=== PATIENT | male | born 1965 | race Caucasian/White ===

== ENCOUNTER 2020-03-13 00:20 | Emergency (ER) | payer OTHER ==
[~2020-03-13] VITALS: Ht 180.3 cm; Wt 108.9 kg
[~2020-03-13 00:20] MED LIST: ATENOLOL-? DOSE; BUPR100; CEPH500 PO; CRUTCH4 XX; Crutch1 EACH MISC; DILT120 PO; HYDCHL12.5 PO; HYDCHL25 PO; IBUP600 PO; LISI10 PO; LISI20 PO; LISI5 PO; LORA10ER PO; METO25ER PO; METO50 PO; NYSTRITC TOP; QUET100; RANI150; SAPHRIS; SIMV20 PO; SIMV5 PO; SULTRIDS PO; TRAM50 PO; TRAZ100; WARF5 PO; [UNRECOGNIZED DRUG - REMARK]
[2020-03-13 01:01] LABS: BASOPHILS ABSOLUTE AUTO 0.02 K/mm3 (0.00-0.23); BASOPHILS PERCENT AUTO 0 % (0-2); EOSINOPHILS ABSOLUTE AUTO 0.04 K/mm3 (0.00-0.68); EOSINOPHILS PERCENT AUTO 0 % (0-6); Hemoglobin 14.1 g/dL (13.5-17.5); IMMATURE GRAN ABSOLUTE AUTO 0.04 K/mm3 (0.00-0.10); IMMATURE GRAN PERCENT AUTO 0 % (0-1); LYMPHOCYTES PERCENT AUTO 15 % (21-46); MONOCYTES ABSOLUTE AUTO 0.73 K/mm3 (0.16-1.47); MONOCYTES PERCENT AUTO 7 % (4-13); Mean Corpuscular HGB 29.5 pg (26.0-34.0); Mean Corpuscular HGB Conc 32.8 g/dL (31.5-36.5); Mean Corpuscular Volume 90 fL (80-100); Mean Platelet Volume 10.8 fL (9.1-12.4); NEUTROPHILS PERCENT AUTO 77 % (41-73); Platelet Count 152 K/mm3 (150-400); RDW Coefficient Variation 13.3 % (11.7-14.2); RDW Standard Deviation 44.2 fL (35.1-46.3); Red Blood Cell Count 4.78 M/mm3 (4.30-5.90); White Blood Cell Count 10.23 K/mm3 (4.00-11.30)
[2020-03-13 01:15] LABS: International Normalized Ratio 1.06; Prothrombin Time Results 11.3 Sec (9.7-11.5)
[2020-03-13 01:18] LABS: Alanine Aminotransfer (ALT/SGP 26 U/L (12-78); Albumin, Blood 3.1 g/dL (3.4-5.0); Albumin/Globulin Ratio 0.6 (0.8-1.8); Alk Phos 73 U/L (50-136); Anion Gap 8 mmol/L (6-16); Aspartate Aminotrans (AST/SGOT 17 U/L (12-37); Bilirubin, Total 1.3 mg/dL (0.1-1.0); Blood Urea Nitrogen 22 mg/dL (8-24); Bun/Creatinine Ratio 25.2 (12.0-20.0); CO2, Blood 23 mmol/L (21-32); Chloride, Blood 103 mmol/L (98-108); Creatinine, Blood 0.87 mg/dL (0.60-1.20); Globulin, Blood 4.9 g/dL (2.2-4.0); Glomerular Filtration Rate >60 (60-); Glucose, Blood 119 mg/dL (70-99); Potassium, Blood 3.4 mmol/L (3.5-5.5); Sodium, Blood 134 mmol/L (136-145)
[2020-03-13] MEDS ORDERED: KEFLEX500 MG PO (03:02)
== END 2020-03-13 03:05 | disposition home or self-care (01) ==
LOC: ER 00:20
PROVIDERS: Emergency Medicine
DX: L03.115 Cellulitis of right lower limb (principal); Z79.01 Long term (current) use of anticoagulants; Z79.899 Other long term (current) drug therapy; I10 Essential (primary) hypertension; F31.9 Bipolar disorder, unspecified; F20.9 Schizophrenia, unspecified; G47.30 Sleep apnea, unspecified; Z87.891 Personal history of nicotine dependence
CPT/HCPCS: 36415; 80053; 83605; 85025; 85610; 93971; 96365; 99284-25; J0690

== ENCOUNTER 2021-03-20 23:36 | Inpatient (IN) | payer OTHER ==
[~2021-03-20] VITALS: Ht 180.3 cm; Wt 116.0 kg
[~2021-03-20 23:36] MED LIST changes: +KEFLEX500 MG PO
[2021-03-21 01:20] LABS: BASOPHILS ABSOLUTE AUTO 0.03 K/mm3 (0.00-0.23); BASOPHILS PERCENT AUTO 0 % (0-2); EOSINOPHILS ABSOLUTE AUTO 0.02 K/mm3 (0.00-0.68); EOSINOPHILS PERCENT AUTO 0 % (0-6); Hematocrit 44.8 % (37.0-53.0); Hemoglobin 14.4 g/dL (13.5-17.5); IMMATURE GRAN ABSOLUTE AUTO 0.06 K/mm3 (0.00-0.10); IMMATURE GRAN PERCENT AUTO 0 % (0-1); LYMPHOCYTES ABSOLUTE AUTO 0.98 K/mm3 (0.84-5.20); LYMPHOCYTES PERCENT AUTO 7 % (21-46); MONOCYTES ABSOLUTE AUTO 0.69 K/mm3 (0.16-1.47); MONOCYTES PERCENT AUTO 5 % (4-13); Mean Corpuscular HGB Conc 32.1 g/dL (31.5-36.5); Mean Corpuscular Volume 93 fL (80-100); Mean Platelet Volume 11.8 fL (9.1-12.4); NEUTROPHILS ABSOLUTE AUTO 12.59 K/mm3 (1.96-9.15); NEUTROPHILS PERCENT AUTO 88 % (41-73); Platelet Count 180 K/mm3 (150-400); RDW Coefficient Variation 14.7 % (11.7-14.2); RDW Standard Deviation 49.9 fL (35.1-46.3); White Blood Cell Count 14.37 K/mm3 (4.00-11.30)
[2021-03-21 02:00] LABS: Albumin/Globulin Ratio 0.8 (0.8-1.8); Bilirubin, Total 2.2 mg/dL (0.1-1.0); Bun/Creatinine Ratio 20.3 (12.0-20.0); Calcium, Blood 8.2 mg/dL (8.5-10.1); Creatinine, Blood 1.38 mg/dL (0.60-1.20); Globulin, Blood 3.6 g/dL (2.2-4.0); Potassium, Blood 4.4 mmol/L (3.5-5.5); Total Protein, Blood 6.6 g/dL (6.4-8.2); Troponin I 0.092 ng/mL (0.000-0.040)
[2021-03-21 02:53] LABS: Base Excess Venous 2.6 mmol/L; Bicarbonate Venous 24.9 mmol/L (24.0-30.0); pH Blood Venous 7.37 (7.34-7.37)
[2021-03-21 07:03] LABS: International Normalized Ratio 1.16; Prothrombin Time Results 12.4 Sec (9.7-11.5)
--- NOTE | 2021-03-21 07:48 | NUR ---
SHIFT SUMMARY REPORT RECIEVED FROM ANTONELLA RN, PATIENT TO ROOM @0545, SLID TO THE BED. PATIENT NOT RESPONDING TO VERBAL STIMULI UPON ARRIVAL, RESPONDED TO PAINFUL STIMULI. ONCE ALERT PATIENT ABLE TO ANSWER APPROPRIATELY AND PARTICIPATE IN CONVERSATIONG. PATIENT TO FLOOR ON BIPAP 02 SATS 97%. PATIENT COMPLAINING OF RLE PAIN, REDNESS, SWELLING AND PUSS NOTICED. REDNESS ON LLE WELL. SCABS COVERING ABDOMEN. PATIENT ABLE TO USE URINAL. VSS, NO ACUTE CHANGES. CALL LIGHT IN REACH.
[2021-03-21 09:14] LABS: Bicarbonate Venous 24.4 mmol/L (24.0-30.0); PCO2 Venous 30.9 mmHg (38-42); PO2 Venous 109 mmHg (38-42); pH Blood Venous 7.47 (7.34-7.37)
[2021-03-21 09:25] LABS: U Amphetamine Screen Not Detected; U Barbituate Screen Not Detected; U Benzodiazapine Screen Not Detected; U Buprenorphine Screen Not Detected; U Cannabinoids Screen Not Detected; U Cocaine Screen Not Detected; U Methadone Screen Not Detected; U Methamphetamine Screen Not Detected; U Opiates Screen Not Detected; U Oxycodone Screen Not Detected; U Phencyclidine Screen Not Detected; U Propoxyphene Screen Not Detected
[2021-03-21 15:07] LABS: Bun/Creatinine Ratio 16.1 (12.0-20.0); Calcium, Blood 7.5 mg/dL (8.5-10.1); Creatinine, Blood 1.86 mg/dL (0.60-1.20); Potassium, Blood 4.8 mmol/L (3.5-5.5)
--- NOTE | 2021-03-21 17:08 | NUR ---
Echocardiogram completed using 0.60ml of Definity contrast.
--- NOTE | 2021-03-21 17:47 | NUR ---
SHIFT SUMMARY THIS AM PT RESPONDING TO VERBAL STIMULI, THIS EVENING PT IS ALERT, ORIENTED TO PERSON, PLACE, EVENT AND TIME. PT UP WITH 1 PERSON ASSIST. PT ON BIPAP THIS AM 29/06 AT 45% FIO2, PT ON 4L O2 VIA NC. SOB, LABORED, TACHYPNIC. LS DIMISINTED T/O. PT DENIES PAIN, CHEST PAIN, NAUSEA AND DIZZINESS. CONT/INCONT. LAB THIS AFTERNOON, NOTIFIED DR SALCEDO, NEW ORDER ENTERED. BOLUS GIVNE. OTHER VSS. NO OTHER ACUTE CHANGES NOTED DURING SHIFT. WILL CONTINUE TO MONTIOR UNTIL REPORT GIVEN TO ONCOMING RN.
[2021-03-21 21:09] LABS: Base Excess Venous -0.9 mmol/L; PCO2 Venous 49.1 mmHg (38-42); PO2 Venous 27.2 mmHg (38-42); pH Blood Venous 7.32 (7.34-7.37)
[2021-03-21 21:52] LABS: BASOPHILS ABSOLUTE AUTO 0.02 K/mm3 (0.00-0.23); BASOPHILS PERCENT AUTO 0 % (0-2); EOSINOPHILS ABSOLUTE AUTO 0.02 K/mm3 (0.00-0.68); EOSINOPHILS PERCENT AUTO 0 % (0-6); Hematocrit 41.2 % (37.0-53.0); Hemoglobin 13.6 g/dL (13.5-17.5); IMMATURE GRAN ABSOLUTE AUTO 0.03 K/mm3 (0.00-0.10); IMMATURE GRAN PERCENT AUTO 0 % (0-1); LYMPHOCYTES ABSOLUTE AUTO 1.13 K/mm3 (0.84-5.20); LYMPHOCYTES PERCENT AUTO 14 % (21-46); MONOCYTES ABSOLUTE AUTO 0.71 K/mm3 (0.16-1.47); MONOCYTES PERCENT AUTO 9 % (4-13); Mean Corpuscular HGB 30.1 pg (26.0-34.0); Mean Corpuscular Volume 91 fL (80-100); Mean Platelet Volume 11.8 fL (9.1-12.4); NEUTROPHILS ABSOLUTE AUTO 6.31 K/mm3 (1.96-9.15); NEUTROPHILS PERCENT AUTO 77 % (41-73); Platelet Count 141 K/mm3 (150-400); RDW Coefficient Variation 14.7 % (11.7-14.2); RDW Standard Deviation 48.9 fL (35.1-46.3); Red Blood Cell Count 4.52 M/mm3 (4.30-5.90); White Blood Cell Count 8.22 K/mm3 (4.00-11.30)
[2021-03-21 22:13] LABS: Albumin, Blood 2.4 g/dL (3.4-5.0); Albumin/Globulin Ratio 0.7 (0.8-1.8); Bilirubin, Total 1.5 mg/dL (0.1-1.0); Bun/Creatinine Ratio 16.1 (12.0-20.0); Calcium, Blood 7.3 mg/dL (8.5-10.1); Creatinine, Blood 2.36 mg/dL (0.60-1.20); Globulin, Blood 3.4 g/dL (2.2-4.0); Potassium, Blood 4.8 mmol/L (3.5-5.5); Total Protein, Blood 5.8 g/dL (6.4-8.2); Troponin I 0.132 ng/mL (0.000-0.040)
[2021-03-21 22:22] LABS: PCO2 Arterial 39.1 mmHg (35-45); PO2 Arterial 142 mmHg (80-100); pH Blood Arterial 7.37 (7.35-7.45)
--- NOTE | 2021-03-21 22:55 | NUR ---
ASSUMPTION OF CARE RECEIVED BEDSIDE REPORT AT 0 FROM BHUPENDRA HOWARD IN PCU. INITIATED LEVOPHED CHARTED. RT TO ROOM ADJUSTING BIPAP AND DRAWING ABG. LAB TO ROOM DRAWING BLOOD FOR STAT LABS. PATIENT AWOKE TO COMMANDS AND WAS ALERT AND ORIENTED. WITHOUT STIMULATION PATIENT QUICKLY BEGAN SLEEPING AND WAS HARD TO AROUSE REQUIRING STERNAL RUB OR SHOUTING. ONCE VITALS STABILIZED AND LABS DRAWN, 2RN AND RT ASSIST TO CT FOR HEAD CT ORDERED. PATIENT ARRIVED TO ICU AT 0. CELESTE HOWARD PLACING ULTRASOUND IV'S TO LEFT EXTREMITY. PATIENT TOLERATING WELL. DR. JENKINS TO ROOM AT 2245, REVIEWED LABS AND WROTE NEW ORDERS. WILL REVIEW AND TREAT PRESCRIBED.
--- NOTE | 2021-03-21 23:34 | NUR ---
1929-DURING REPORT PATIENT SLEEPING. 1944-CALLED TO ROOM BY RT DUE TO PATIENT HAVING APNEIC BREATHING WHILE ON BIPAP AND HARD TO WAKE. CALLED FOR TELE ORDERS AND TO CHANGE PT STATUS BACK TO PCU SINCE PATIENT WAS TO BE TRANSFERRED TO MEDICAL FLOOR. ONCE ON TELEMETRY PATIENT NOTED TO BE IN A.FIB 130s-140s. UNABLE TO GIVE PO METOPROLOL DUE TO PATIENT APNEIC BREATHING AND STERNAL RUB TO GET PATIENT RESPONSE. MADE AWARE. 2008- TO PATIENT ROOM. VERBAL ORDERS FOR IV LOPRESSOR AND ABG. UNABLE TO GIVE RUBIO LOPRESSORE DUE TO PT BLOOD PRESSURE OF 84/58 BP WAS ORIGINALLY 119/65 @1944. ORDERS FOR 1L NS BOLUS, LABS AND TRANFER TO ICU, ICU 11 BED BEING CLEANED. TO THE ROOM, VERBAL ORDERS FOR WHIPPLE, HEAD CT WITHOUT CONTRAST AND LEVOPHED. UNABLE TO GET SECOND PERIPHERAL IV PLACED. BEDSIDE REPORT GIVEN TO TRISTAN HOWARD. NOTIFIED FAMILY. APPROX 2129-PT TO CT THEN ICU 11.
--- NOTE | 2021-03-22 00:44 | NUR ---
UPDATE RECTAL TUBE PLACED AND LACTULOSE ENEMA GIVEN CHARTED. UNCLAMPED RECTAL TUBE AFTER 30 MINUTES WITH NO STOOL NOTED. WHIPPLE CATHETER PLACED, PATIENT AWOKE QUICKLY, SHOUTED DURING PROCEDURE. AFTER COMPLETION PATIENT WAS AWAKE AND TALKING. BIPAP REMOVED, SATS 96% ON RA. ICE WATER PROVIDED, PATIENT TOLERATED PO INTAKE. PATIENT STATED HE DID NOT REMEMBER THE LAST FEW HOURS OR REMEMBER MOVING TO ICU. EDUCATED PATIENT ON CURRENT SITUATION AND MEDICAL CHANGES HE EXPERIENCED THAT CAUSED HIM TO COME TO ICU. PATIENT VERBALIZED UNDERSTANDING. WATCHING TV, BP IMPROVING. WILL MONITOR.
[2021-03-22 00:57] LABS: Source, Urine Catheter
[2021-03-22 00:59] LABS: Appearance, Urine Hazy (Clear); Bilirubin, Urine Neg (Neg); Blood, Urine 4+ (Neg); Color, Urine Amber (P-Yellow); Glucose Qualitative, Urine 1+ (Neg); Ketones, Urine Neg (Neg); Leukocyte Esterase, Urine 1+ (Neg); Nitrite, Urine Neg (Neg); Protein, Urine 4+ (Neg); Specific Gravity, Urine 1.025 (1.003-1.022); Urobilinogen, Urine 1+ (Normal)
[2021-03-22 01:05] LABS: Amorphous Mod (0-Heavy); Bacteria Mod /hpf; Hyaline Casts 0-2 /lpf (0-2); Squamous Epithelial Cells Few /hpf (Few)
--- NOTE | 2021-03-22 01:09 | NUR ---
RECTAL TUBE PATIENT STATING CONTINUOUSLY "MY BUTT HURTS" REMOVED RECTAL TUBE, SPOKE TO DR. GONZALEZ AND CHANGED LACTULOSE ORDERS FROM RECTALLY TO PO. NO BM AT THIS POINT.
--- NOTE | 2021-03-22 04:37 | NUR ---
UPDATE PATIENT FREQUENTLY CALLS OUT USING "KNOCK, KNOCK" OR "HEY NURSE", FORGETS TO USE CALL LIGHT. EACH TIME RN ENTERS ROOM PATIENT EXPRESSES CONCERN OVER HIS ILLNESS, STATING HE IS WORRIED ABOUT HIS HEART, KIDNEYS AND LIVER. PATIENT MAKES COMMENTS THAT HE IS GOING TO CHANGE AND START TAKING HIS MEDICATIONS LIKE HE IS SUPPOSED TO AND ASKED TO USE THE CPAP WHILE HE SLEPT. BIPAP WAS PLACED, PATIENT TOLERATED WELL, RESTING COMFORTABLY. SBP BELOW 90 BUT MAPS REMAINS ABOVE 65. PER DR. JENKINS LEVOPHED IS TO BE UTILIZED FOR MAP AND PATIENT'S SBP WAS OKAY LONG THE MAP REMAINS ABOVE 65. LEVOPHED CURRENTLY AT 1MCG. WILL CONTINUE TO MONITOR, CALL LIGHT IN REACH.
--- NOTE | 2021-03-22 05:56 | NUR ---
SHIFT SUMMARY PATIENT TRANSFERRED FROM PCU TO ICU FOR LOW BLOOD PRESSURE AND NEURO STATUS CHANGES. HEAD CT PERFORMED, LEVOPHED AND BIPAP INITIATED. PATIENT AWOKE PREVIOUSLY CHARTED AFTER LACTULOSE ENEMA WAS GIVEN. NO STOOL AT THIS TIME. A/O, FORGETFUL. TOLERATES INTERVENTIONS AND BIPAP WELL. TOLERATED BREAK ON 3L 02 VIA NC WITH SATS ABOVE 95%. REQUESTED TO GO BACK ON BIPAP WHEN ASLEEP. LEVOHPED INFUSED PERIPHERALLY AT A RATE OF 5MCG, TITRATED DOWN NOW LEVOPHED IS ON STANDBY WITH MAPS REMAINING ABOVE 65. WHIPPLE WAS PLACED, DARK URINE NOTED. RECTAL TUBE PLACED FOR LACTULOSE ENEMA, REMOVED FOR PATIENT'S DISCOMFORTS AND LACTULOSE CHANGED TO PO. WILL CONTINUE TO MONITOR AND REPORT TO ONCOMING RN.
[2021-03-22 07:38] LABS: Albumin, Blood 2.4 g/dL (3.4-5.0); Albumin/Globulin Ratio 0.7 (0.8-1.8); Bilirubin, Total 1.7 mg/dL (0.1-1.0); Bun/Creatinine Ratio 16.4 (12.0-20.0); Calcium, Blood 7.4 mg/dL (8.5-10.1); Creatinine, Blood 2.68 mg/dL (0.60-1.20); Globulin, Blood 3.5 g/dL (2.2-4.0); Potassium, Blood 4.4 mmol/L (3.5-5.5); Total Protein, Blood 5.9 g/dL (6.4-8.2)
[2021-03-22 07:39] LABS: International Normalized Ratio 1.17; Prothrombin Time Results 12.5 Sec (9.7-11.5)
--- NOTE | 2021-03-22 08:30 | NUR ---
ASSUMED CARE BEDSIDE REPORT RECIEVED. PT IS LAYING IN BED AWAKE, ALERT, AND ORIENTED. PT ANSWERS SOME QUESTIONS APPROPRIATELY. PT WITH SCATTERED NONSENSICAL SPEECH AT TIMES. HR 120-130'S, BP LABILE. PT ON 2L O2 NC. RIGHT LOWER EXTREMITY SWELLING/REDDNESS NOTED. MULTIPLE SCABS TO ABDOMEN NOTED. WHIPPLE IN PLACE WITH MANUEL URINE OUTPUT NOTED. WILL CONTINUE TO MONITOR.
[2021-03-22 12:12] LABS: Calcium, Blood 7.6 mg/dL (8.5-10.1); Creatinine, Blood 2.65 mg/dL (0.60-1.20); Potassium, Blood 4.3 mmol/L (3.5-5.5)
[2021-03-22 13:39] LABS: Thyroid Stimulating Hormone 3.52 uIU/mL (0.360-4.800)
--- NOTE | 2021-03-22 14:40 | NUR ---
ESMOLOL / HR PT WITH SUSTAINED HR 120-130'S AFIB. ORDERS RECIEVED TO START ESMOLOL GTT. ESMOLOL GTT STARTED WITH LOADING DOSE AND TITRATED UP TO 200 MCG/KG/MIN. HR DOWN TO 100'S. BP STABLE INITIALLY, THEN PT BECAME HYPOTENSIVE WITH SBP 60'S. ESMOLOL GTT PLACED ON STANDBY AT THIS TIME.
--- NOTE | 2021-03-22 18:05 | NUR ---
SHIFT SUMMARY NO ACUTE CHANGES THIS SHIFT. PT HAS REMAINED AWAKE FOR MOST OF THE DAY. PT WITH PERIODS OF SLEEPING AT TIMES, BUT AWAKENS EASILY. PT IS ALERT AND ORIENTED, BUT SPEECH REMAINS NONSENSICAL AT TIMES. PT DENIES ANY PAIN OR SOB. PT ON 2L O2 NC. PT BP HAS REMAINED LABILE THROUGHOUT THE SHIFT AND HR 110-130'S AFIB. PT CURRENTLY ON AMIODARONE GTT AT 1 MG/MIN. DR YA AWARE OF HR AND LABILE BP. WHIPPLE IN PLACE WITH SMALL AMOUNT OF DARK MANUEL OUTPUT THIS SHIFT. PT UP TO BSC FOR MULTIPLE BM'S THIS SHIFT. VISIT FROM PASTORAL [facility]ARE THIS AFTERNOON PER PT REQUEST. WILL CONTINUE TO MONITOR AND REPORT OFF TO ONCOMING RN.
--- NOTE | 2021-03-22 18:06 | NUR ---
Provided spiritual family life counselor and prayer to Stanley to good effect.
--- NOTE | 2021-03-23 05:59 | NUR ---
SHIFT SUMMARY PT AWAKE MOST OF NIGHT. ALERT AND ORIENTED, ABLE TO MAKE NEEDS KNOWN. COOPERATIVE WITH PLAN OF CARE. REASONING AND THOUGHT PROCESS A LITTLE OFF. SATS >90% ON 3LNC. TELE/EKG SHOWS AFIB RVR - AMIO GTT RUNNING AT HALF RATE NOW, BUT ALSO CALLED MD FOR AMIO BOLUS SINCE THERE HAD BEEN NO CHANGES TO HR WITH AMIO GTT ALONE. WHIPPLE IN PLACE - DRAINING TO GRAVITY, JESSICA CARE DONE. ABD/BLE RASH/CELLULITIS. FREQUENT BOWEL MOVEMENTS AFTER LACTULOSE GIVEN. VSS. NO C/O PAIN. CALL LIGHT WITHIN REACH, BED IN LOWEST POSITION. WILL CONTINUE TO MONITOR.
[2021-03-23 06:45] LABS: International Normalized Ratio 1.37; Prothrombin Time Results 14.5 Sec (9.7-11.5)
[2021-03-23 10:26] LABS: Albumin, Blood 2.7 g/dL (3.4-5.0); Albumin/Globulin Ratio 0.7 (0.8-1.8); Bilirubin, Total 2.3 mg/dL (0.1-1.0); Bun/Creatinine Ratio 17.5 (12.0-20.0); Creatinine, Blood 3.09 mg/dL (0.60-1.20); Potassium, Blood 4.7 mmol/L (3.5-5.5); Total Protein, Blood 6.7 g/dL (6.4-8.2)
--- NOTE | 2021-03-23 11:12 | NUR ---
pt was OOB to chair for breakfast, dyspneic with activity, also anxious after learning that he has heart failure. Dr. Baltazar here to talk with patient. Pt states that he is very motivated to follow recommendations for his health. States difficulty breathing with activity. Requiring oxygen at 2 l/min to maintain spo2 greater than 90%. Tolerated activity fairly well, getting up to bedside commode and then to chair with stanby assistance and using the walker for support. One liquid brownish yellow bowel movement this morning. Sat up in chair for most of morning, then requested back to bed around 1030. Almost immediately fell asleep. At this time, wearing cpap and sleeping . Fio2 is 35% on cpap. Noted CMP results, call to Dr. Baltazar regarding the renal function as well as significant jump in liver enzymes. Asked if amiodarone induced liver toxicity is a concern, and the doctor said no, that it was probably shock liver, and to keep the amiodarone gtt going. Advised him that I have about 6 hours left on the amiodarone gtt.
--- NOTE | 2021-03-23 12:16 | NUR ---
lactated ringer's infusion stopped at this time, per Dr. Benson's orders.
--- NOTE | 2021-03-23 13:36 | NUR ---
IV INFILTRATED ON THE RIGHT AC. AMIODARONE GTT. LACTATED RINGERS DC'D AGAIN, AFTER RATE CHANE. ATTEMPTING NEW IV TO START AMIODARONE, HEPARIN GTT AND ZOSYN INFUSING ON THE LEFT FOREARM SITE.
--- NOTE | 2021-03-23 14:02 | NUR ---
Reassessment of of right antecubital IV excellent blood flash, despite some edema distal to the site, which appears to be from a coban on the right wrist after a lab draw this morning. Amiodarone gtt continuing, as well as heparin gtt which is infusing through the left forearm IV site.
--- NOTE | 2021-03-23 15:13 | NUR ---
Call to Dr. Benson regarding sudden drop in blood pressure after admiministration of IV bumex. pt's blood pressure did recover to 90 systolic, with MAP of 88. New holding parameters received for administration of bumex.
--- NOTE | 2021-03-23 16:54 | NUR ---
The pt has been alert and oriented when awake; anxiety this morning when he realized that he has heart failure. Pt education begun by RN as well as Dr. Baltazar, resident in training with Dr. Manriquez, hospitalist at the bedside. Pt stated this morning he was exhausted after being up "all night" with diarrhea. He has had 2 liquid bowel movements today. LFT noted much more elevated today compared with yesterday. This and renal function labs discussed this morning with Dr. Baltazar. Nephrology was consulted, and Dr. Benson came to see the patient. Pt is eating and drinking well, fluid restriction in place 1500 cc/24 hours. Cisneros remains in place, per Dr. Baltazar. Urine output has been good, considerably increased after administration of bumex ordered by the rda. Blood pressure also dropped after bumex was given; Dr. Bneson notified by phone and holding parameters were ordered. Pt was been OOB with 1 person assistance to BSC as well as to the chair for breakfast, and sitting on side of bed for lunch. He is tachypneic at rest, and dyspneic with minimal exertion. Cpap in use while napping today, fio2 35% on the CPAP. O2 delivery while awake weaned from 4 l/min to 2 l/min nasal cannula. Generalized swelling noted on all extremities, as well as abdomen, noted by USS tech also states in subcutaneous tissue throughout abdomen today when renal ultrasound was done. Heparin gtt started this morning per Dr. Manriquez's orders. Lactated ringers' IV fluids ordered by Dr. Baltazar, rate decreased then dc'd completely by Dr. Benson. Cardiology consult order noted, no new orders from Cardiology. Amiodarone gtt completed at 1630 today, oral amiodarone started at that time. Pt remains in afib/a flutter rate 101-117. Blood pressure stable today above 90 systolic except for following administration of bumex IV.
[2021-03-24 04:05] LABS: Hematocrit 39.4 % (37.0-53.0); Hemoglobin 13.1 g/dL (13.5-17.5)
[2021-03-24 04:16] LABS: International Normalized Ratio 1.27; Prothrombin Time Results 13.5 Sec (9.7-11.5)
[2021-03-24 04:25] LABS: Albumin, Blood 2.3 g/dL (3.4-5.0); Albumin/Globulin Ratio 0.7 (0.8-1.8); Bilirubin, Total 1.8 mg/dL (0.1-1.0); Bun/Creatinine Ratio 19.3 (12.0-20.0); Calcium, Blood 7.3 mg/dL (8.5-10.1); Creatinine, Blood 2.54 mg/dL (0.60-1.20); Globulin, Blood 3.3 g/dL (2.2-4.0); Phosphorus, Blood 4.5 mg/dL (2.5-4.9); Potassium, Blood 3.8 mmol/L (3.5-5.5); Total Protein, Blood 5.6 g/dL (6.4-8.2)
--- NOTE | 2021-03-24 05:35 | NUR ---
SHIFT SUMMARY PT RESTED WELL THROUGH THE NIGHT. ALERT AND ORIENTED, ABLE TO MAKE NEEDS KNOWN. COOPERATIVE WITH PLAN OF CARE. SATS >90% ON 2LNC WHEN OFF BIPAP. WORE BIPAP HALF OF THE NIGHT WHILE SLEEPING. TELE - A FIB, BUT RATE MUCH BETTER CONTROLLED AT LOW 100'S. WHIPPLE IN PLACE, DRAINING TO GRAVITY, JESSICA CARE PERFORMED - 2100ML UOP. 1 BM AFTER LACTULOSE GIVEN - LOOSE/BROWN. NO C/O PAIN. DID COMPLAIN OF SOME ACID REFLUX - SEE EMAR. GENERALIZED SWELLING AND EDEMA, BUT WEEPING NOTED FROM RLE. VSS. CALL LIGHT WITHIN REACH, BED IN LOWEST POSITION. WILL CONTINUE TO MONITOR.
--- NOTE | 2021-03-24 07:21 | NUR ---
Assumed care of this pt this morning. He is A/O x 4 with no complaints at this time. He is getting up to the BSC with the ENVIRONMENTAL [employer]CI[employer] PLANNER assist as he continues to have frequent BMs. Hes currently on 2 LPM via NC. Heparin gtt is running as ordered. He is able to make his needs known and uses the call light appropriately.
[2021-03-24 12:03] LABS: Mean Platelet Volume 12.8 fL (9.1-12.4); Platelet Count 140 K/mm3 (150-400)
--- NOTE | 2021-03-24 15:30 | NUR ---
Dr Ventura reviewed pt ekg and gave orders as reflected on the EMAR. Due to IV compatibility a second IV was needed. After the midline was placed the pt BP was re-checked and found to be hypotensive, will re-check BP and then call Dr with results. Pt is a/o at baseline and denies any chest pain or discomfort.
--- NOTE | 2021-03-24 17:45 | NUR ---
Shift Summary Pt has been a/o x 3-4 all day but does have moments of confusion and talks on tangents and was even singing at one point today. He was able to be on room air for most of the day but this afternoon he dipped down into the high 80's so he is back on 2 lpm via NC. He continues with the PO lactulose and has been using the BSC. He is in A-Fib with a BBB and Dr Ventura has updated his cardiac meds on the EMAR. His cellulitis to BLE is warm, red and weeping so wound care orders were obtained and he has dressing in place now. His "roommate" came to visit him this afternoon and was very emotional, she left for a short time and then came back and has now left for the evening. I midline was placed for additional IV access. The heparin gtt is running per pharmacy. The pt has been agreeable and cooperative with his care. He is able to make his needs known and calls appropriately.
--- NOTE | 2021-03-24 19:32 | NUR ---
ASSUMED CARE REPORT RECEIVED FROM IRINA HOWARD. PT RESTING COMFORTABLY IN BED, DENIES PAIN AT THIS TIME. ALERT AND ORIENTED, FOLLOWS COMMANDS. HR 116, SBP 100'S, SPO2 98% ON 2L NC. BILATERAL LEGS WITH DRESSINGS AND COMPRESSION WRAPS. HEPARIN CURRENTLY INFUSING AT 18 UNITS/KG/HR AND NS TKO. PT ON FLUID RESTRICTION. WHIPPLE DRAINING DARK YELLOW URINE WITH SEDIMENT TO GRAVITY. ATTENDS IN PLACE FOR FREQUENT BOWEL MOVEMENTS. PT AGREEABLE TO WEARING BIPAP FOR SLEEP.
--- NOTE | 2021-03-24 23:40 | NUR ---
TRANSFER TO PCU PT TRANSFERRED TO PCU FROM ICU, ESCORTED W/ INSURANCE UNDERWRITER SALES AND ICU MULE TENDER, ORIENTED TO ROOM, A/O X4, DENIES PAIN AT THIS TIME, REQUESTING SOMETHING TO EAT, VSS AT THIS TIME, NO CURRENT CONCERNS FROM PATIENT
--- NOTE | 2021-03-25 07:16 | NUR ---
SHIFT SUMMARY S/P CHF W/ FLUID OVERLOAD, A/O X4, VSS OTHER THAN TACHYCARDIA 110'S-120'S, FLUID RESTRICTION, WHIPPLE IN PLACE DRAINING DARK YELLOW URINE W/ SEDIMENT, SBA TO XFER TO BSC, HEPARIN DRIP INFUSING. NO ACUTE EVENTS THIS SHIFT. CALL LIGHT IN REACH, REPORT GIVEN TO DAY RN.
[2021-03-25 07:29] LABS: Albumin, Blood 2.4 g/dL (3.4-5.0); Anion Gap 7 mmol/L (6-16); Blood Urea Nitrogen 49 mg/dL (8-24); Bun/Creatinine Ratio 20.5 (12.0-20.0); CO2, Blood 26 mmol/L (21-32); Calcium, Blood 7.9 mg/dL (8.5-10.1); Chloride, Blood 102 mmol/L (98-108); Creatinine, Blood 2.39 mg/dL (0.60-1.20); Glomerular Filtration Rate 28 (60-); Glucose, Blood 131 mg/dL (70-99); Magnesium, Blood 1.9 mg/dL (1.6-2.4); Phosphorus, Blood 3.6 mg/dL (2.5-4.9); Sodium, Blood 135 mmol/L (136-145)
[2021-03-25 08:21] LABS: International Normalized Ratio 1.27; Prothrombin Time Results 13.5 Sec (9.7-11.5)
[2021-03-25 10:10] LABS: Alk Phos 96 U/L (50-136); Aspartate Aminotrans (AST/SGOT 650 U/L (12-37); Bilirubin, Direct 0.5 mg/dL (0.0-0.3); Bilirubin, Indirect 0.8 mg/dL (0.1-0.7); Bilirubin, Total 1.3 mg/dL (0.1-1.0); Total Protein, Blood 6.4 g/dL (6.4-8.2)
[2021-03-25 10:24] LABS: Alanine Aminotransfer (ALT/SGP 1202 U/L (12-78); Albumin/Globulin Ratio 0.6 (0.8-1.8)
[2021-03-25 11:17] LABS: Bun/Creatinine Ratio 20.6 (12.0-20.0); Calcium, Blood 7.6 mg/dL (8.5-10.1); Creatinine, Blood 2.38 mg/dL (0.60-1.20); Magnesium, Blood 1.9 mg/dL (1.6-2.4); Potassium, Blood 4.1 mmol/L (3.5-5.5)
--- NOTE | 2021-03-25 18:37 | NUR ---
SHIFT SUMMARY: PT A&O X4; CALM AND COOPERATIVE WITH CARE. NO C/O PAIN / NAUSEA THIS SHIFT. WHIPPLE D/C'd THIS SHIFT; PT VOIDING SPONTANEOUSLY. HEPARIN DRIP CONTINUING @ 16.0U/KG/HR (32.0ML/HR); IV ABX CONTINUING. CARDIOVERSION PLANNED FOR 03/26; PT TO BE NPO @ MIDNIGHT. WCTM.
[2021-03-26 05:08] LABS: Hematocrit 41.3 % (37.0-53.0); Hemoglobin 13.1 g/dL (13.5-17.5)
[2021-03-26 05:28] LABS: Albumin, Blood 2.5 g/dL (3.4-5.0); Anion Gap 4 mmol/L (6-16); Blood Urea Nitrogen 44 mg/dL (8-24); Bun/Creatinine Ratio 19.8 (12.0-20.0); CO2, Blood 31 mmol/L (21-32); Chloride, Blood 105 mmol/L (98-108); Creatinine, Blood 2.22 mg/dL (0.60-1.20); Glomerular Filtration Rate 31 (60-); Glucose, Blood 94 mg/dL (70-99); Magnesium, Blood 1.9 mg/dL (1.6-2.4); Phosphorus, Blood 3.5 mg/dL (2.5-4.9); Sodium, Blood 140 mmol/L (136-145)
--- NOTE | 2021-03-26 07:30 | NUR ---
SHIFT SUMMARY S/P CHF, CELLULITIS TO BLE c EDEMA, SLIGHTLY MORE EDEME RLE THAN LLE, CONDOM CATH IN PLACE DUE TO URGENCY, PT GETS UP W/ 1 PERSON ASSIST BUT DOES WELL ONCE HE IS STANDING, HEPARIN DRIP INFUSING ORDERED, NPO SINCE MIDNIGHT, CONSENT FOR ALEYDA TODAY SIGNED AND IN DRAWER c PAPER CHART. NO ACUTE EVENTS THIS SHIFT. CALL LIGHT IN REACH, REPORT GIVEN TO DAY RN.
--- NOTE | 2021-03-26 09:00 | NUR ---
PT ALERT AND ORIENTED X3-4. GARBELED SPEECH. LUNGS SOUNDING CLEAR AND DIM IN BASES. ON BIPAP WHEN SLEEPING AND SATING ABOVE 94%. WHEN AWAKE THIS AM, PT ON ROOM AIR AND SATING ABOVE 94%. TELE SHOWING AFIB WITH HR 100-110. PLAN FOR CARDIOVERSION THIS AM. VITAL SIGNS STABLE. BOWEL TONES HEARD. BILATERAL LOWER EXTREMITY EDEMA WITH CELLULITIS. COMPRESSION WRAPS. NPO SINCE MIDNIGHT. CALL LIGHT IN REACH. PT DENIES NEEDS AT THIS TIME. WILL CONTINUE TO MONITOR.
[2021-03-26 09:18] LABS: Mean Platelet Volume 11.8 fL (9.1-12.4); Platelet Count 119 K/mm3 (150-400)
--- NOTE | 2021-03-26 10:23 | NUR ---
ALEYDA/CARDIOVERSION: 1025-PROCEDURE STARTED AFTER TIME OUT. SEE HC FLOW SHEET FOR MEDICATIONS GIVEN. VSS. KERLINE RESP THERAPY AT BEDSIDE TO ASSIST. DR. PAVON PERFORMING CARDIOVERSION/ALEYDA. PATIENT IS OON NRB, FLUSH. 1028-SCOPE PASSED. 1030-SCOPE OUT 1031-PATIENT ATTEMPTED CARDIOVERSION WITH 200J, RETURNING RHYTHM A-FIB. 1032- ATTEMPTED ANOTHER SHOCK OF 200J-RETURNING RHYTHM A-FIB. 1035-PATIENT IS STARTING TO HAVE APNEA, PROVIDER REQUESTING RT TO PLACE C-PAP, THEN REQUESTING PATIENT BE BAGGED WITH AN AMBU-BAG. PATIENTS OXYGEN SATURATIONS DROPPED DOWN INTO THE 60S AT THIS TIME. ONCE THE PATIENT WAS BAGGED AND MD PERFORMING JAW THRUST MANUEVER OXYGEN SATURATIONS IMPROVED UP INTO THE LOW 90S. THE PATIENT WAS BAGGED FOR APPROX 3-5 MIN. AFTER NARCAN AND ROMIZACON WAS GIVEN PATIENTS RESPIRATORY STATUS STARTING TO IMPROVE AND PATIENT IS RESPONDING TO VERBAL STIMULI. 1039-PATIENT STARTED TO HAVE MORE APNEC EPISODES-NARCAN AND ROMIZACON GIVEN, AGAIN RESPIRATORY STATUS AGAIN IMPROVED. PT IS NOW AROUSABLE TO VERBAL STIMULI, RESTING WITH EYES CLOSED WITH BI-PAP IN PLACE.
--- NOTE | 2021-03-26 18:37 | NUR ---
NO ACUTE CHANGES. PT ON 1 L NASAL CANNULA WHEN UP AND AWAKE, SATING MID 90'S. WHEN SLEEPING PT ENCOURAGED TO WEAR BIPAP. TELE SHOWING AFIB WITH HR 100-110. CARDIOVERSION PROCEDURE THIS AM. 2 BOWEL MOVEMENTS THIS EVENING. EATING WELL. DENIES PAIN. BLE COMPRESSION WRAPS. WILL CONTINUE TO MONITOR AND REPORT OFF.
--- NOTE | 2021-03-27 05:15 | NUR ---
SHIFT SUMMARY PT USING BIPAP MORE WHILE SLEEPING THIS SHIFT, CONTINUING TO HAVE DIFFICULTIES W/ MAINTAINING CONDOM CATHETER IN PLACE, TELE SHOWS AFIB T/O SHIFT c HEART RATE IN LOW 100'S, NO CHANGES IN PATIENT CONDITION, CONTINUING IV ABX AND LACTULOSE. NO ACUTE EVENTS THIS SHIFT. CALL LIGHT IN REACH, WILL CTM AND REPORT TO ONCOMING DAY RN.
[2021-03-27 06:25] LABS: Hematocrit 42.4 % (37.0-53.0); Hemoglobin 13.5 g/dL (13.5-17.5)
[2021-03-27 06:49] LABS: Albumin, Blood 2.5 g/dL (3.4-5.0); Anion Gap 6 mmol/L (6-16); Blood Urea Nitrogen 39 mg/dL (8-24); Bun/Creatinine Ratio 21.1 (12.0-20.0); CO2, Blood 28 mmol/L (21-32); Calcium, Blood 8.3 mg/dL (8.5-10.1); Chloride, Blood 105 mmol/L (98-108); Creatinine, Blood 1.85 mg/dL (0.60-1.20); Glomerular Filtration Rate 38 (60-); Glucose, Blood 114 mg/dL (70-99); Magnesium, Blood 1.7 mg/dL (1.6-2.4); Phosphorus, Blood 3.5 mg/dL (2.5-4.9); Sodium, Blood 139 mmol/L (136-145)
[2021-03-27 07:41] LABS: Albumin, Blood 2.6 g/dL (3.4-5.0); Albumin/Globulin Ratio 0.6 (0.8-1.8); Bilirubin, Direct 0.3 mg/dL (0.0-0.3); Bilirubin, Indirect 0.7 mg/dL (0.1-0.7); Globulin, Blood 4.3 g/dL (2.2-4.0); Total Protein, Blood 6.9 g/dL (6.4-8.2)
[2021-03-27 16:09] LABS: BASOPHILS ABSOLUTE AUTO 0.02 K/mm3 (0.00-0.23); BASOPHILS PERCENT AUTO 0 % (0-2); EOSINOPHILS ABSOLUTE AUTO 0.11 K/mm3 (0.00-0.68); EOSINOPHILS PERCENT AUTO 2 % (0-6); Hematocrit 43.3 % (37.0-53.0); Hemoglobin 13.7 g/dL (13.5-17.5); IMMATURE GRAN ABSOLUTE AUTO 0.06 K/mm3 (0.00-0.10); IMMATURE GRAN PERCENT AUTO 1 % (0-1); LYMPHOCYTES ABSOLUTE AUTO 0.92 K/mm3 (0.84-5.20); LYMPHOCYTES PERCENT AUTO 14 % (21-46); MONOCYTES ABSOLUTE AUTO 0.54 K/mm3 (0.16-1.47); MONOCYTES PERCENT AUTO 8 % (4-13); Mean Corpuscular HGB 29.5 pg (26.0-34.0); Mean Corpuscular HGB Conc 31.6 g/dL (31.5-36.5); Mean Corpuscular Volume 93 fL (80-100); Mean Platelet Volume 11.2 fL (9.1-12.4); NEUTROPHILS ABSOLUTE AUTO 4.97 K/mm3 (1.96-9.15); NEUTROPHILS PERCENT AUTO 75 % (41-73); Platelet Count 147 K/mm3 (150-400); RDW Coefficient Variation 14.7 % (11.7-14.2); RDW Standard Deviation 50.7 fL (35.1-46.3); Red Blood Cell Count 4.64 M/mm3 (4.30-5.90); White Blood Cell Count 6.62 K/mm3 (4.00-11.30)
--- NOTE | 2021-03-27 16:29 | NUR ---
SHIFT SUMMARY PT REPORTS SOME SOB WITH EXERTION, OTHERWISE DENIES. CPAP ON WHILE ASLEEP OR DESATS TO MID 80'S, 2L NASAL CANULA WHILE AWAKE. SATS REMAIN IN MID 90'S. PT AAOX4, CALLS APPROPRIATLY. 1 ASSIST TO BSC, VOIDING. REPORTS FEELING URGE TO HAVE BM BUT UNABLE. NO REDNESS SEEN ON LLE, RLE IS RED AND WARM TO TOUCH, OPEN SORE ON BACK OF CALF. DRESSING CHANGED WITH PHYSICIAN IN ROOM. SIGNIFICANT EDEMA TO BLE, CONTINUING DIURETICS. PT REMAINS IN A FIB WITH TELE ON.
--- NOTE | 2021-03-27 18:50 | NUR ---
REMITTANCE CLERK GAVE REPORT ON PATIENT TO RECIEVING RN ON MEDICAL FLOOR. PLAN TO TRANSFER ONCE ABLE.
[2021-03-28 05:41] LABS: Albumin, Blood 2.4 g/dL (3.4-5.0); Anion Gap 5 mmol/L (6-16); Blood Urea Nitrogen 34 mg/dL (8-24); CO2, Blood 30 mmol/L (21-32); Calcium, Blood 7.9 mg/dL (8.5-10.1); Chloride, Blood 103 mmol/L (98-108); Creatinine, Blood 1.79 mg/dL (0.60-1.20); Glomerular Filtration Rate 39 (60-); Glucose, Blood 111 mg/dL (70-99); Phosphorus, Blood 3.4 mg/dL (2.5-4.9); Potassium, Blood 3.8 mmol/L (3.5-5.5); Sodium, Blood 138 mmol/L (136-145)
--- NOTE | 2021-03-28 06:27 | NUR ---
SUMMARY NO NEW ISSUES NOTED. PT SLEPT WELL W/ CPAP. PT SPO2 >90%. PT CURRENTLY RESTING AND IN NO DISTRESS. DREESING TO LEG IS C/D/I. CALL LIGHT IN REACH.
[2021-03-28 08:22] LABS: Albumin, Blood 2.4 g/dL (3.4-5.0); Albumin/Globulin Ratio 0.6 (0.8-1.8); Bilirubin, Direct 0.3 mg/dL (0.0-0.3); Bilirubin, Indirect 0.6 mg/dL (0.1-0.7); Bilirubin, Total 0.9 mg/dL (0.1-1.0); Globulin, Blood 4.3 g/dL (2.2-4.0); Total Protein, Blood 6.7 g/dL (6.4-8.2)
--- NOTE | 2021-03-28 13:21 | NUR ---
WOUND CARE PROVIDED. PATIENT'S RLE DRESSING HAS BEEN CHANGED AND WOUND HAS BEEN CLEANSED.
--- NOTE | 2021-03-28 17:07 | NUR ---
PATIENT IS ALERT AND ORIENTED. HE IS ON RA. PLAN IS TO MONITOR THE CONTINUOUS PULSE OX OVERNIGHT AND DRAW AN ABG IN THE MORNING AND SEND THE PATIENT HOME WITH A BIPAP IF NEEDED. WOUND CARE COMPLETED TODAY. SBA TO THE BATHROOM. WILL CONTINUE TO MONITOR
--- NOTE | 2021-03-29 04:33 | NUR ---
SHIFT SUMMARY PT UP FREQUENTLY AND URGENTLY TO VOID THROUGHOUT THE NIGHT. OTHERWISE SLEPT. SLEEP STUDY THROUGH THE SHIFT, REMAINS ON AT THIS TIME. PT PLACED ON 2 L VIA NC BY RT WHEN IN THE MID 70'S ON RA. PT MOANS WHILE SLEEPING. DENIES PAIN WHILE AWAKE. DRESSING TO RLE REMAINED C/D/I. PT COMPLIANT WITH FLUID RESTRICTION. NO ACUTE CHANGES THIS EVENING. VITAL SIGNS STABLE. WILL CONTINUE TO MONITOR AND REPORT TO DAY RN.
[2021-03-29 05:22] LABS: PCO2 Arterial 51.3 mmHg (35-45); PO2 Arterial 76.8 mmHg (80-100); pH Blood Arterial 7.43 (7.35-7.45)
[2021-03-29 05:23] LABS: Hematocrit 40.7 % (37.0-53.0); Hemoglobin 12.9 g/dL (13.5-17.5)
[2021-03-29 05:53] LABS: Albumin, Blood 2.3 g/dL (3.4-5.0); Anion Gap 2 mmol/L (6-16); Blood Urea Nitrogen 33 mg/dL (8-24); Bun/Creatinine Ratio 19.3 (12.0-20.0); CO2, Blood 35 mmol/L (21-32); Calcium, Blood 8.3 mg/dL (8.5-10.1); Chloride, Blood 101 mmol/L (98-108); Creatinine, Blood 1.71 mg/dL (0.60-1.20); Glomerular Filtration Rate 41 (60-); Glucose, Blood 125 mg/dL (70-99); Magnesium, Blood 1.7 mg/dL (1.6-2.4); Phosphorus, Blood 3.7 mg/dL (2.5-4.9); Potassium, Blood 3.7 mmol/L (3.5-5.5); Sodium, Blood 138 mmol/L (136-145)
[2021-03-29] MEDS ORDERED: ELIQUIS5 M2 PO (13:30)
[2021-03-29] MEDS ORDERED: BUME2 PO (13:31)
[2021-03-29] MEDS ORDERED: LANOXIN125 MCG PO (13:31)
[2021-03-29] MEDS ORDERED: METO50ER PO (13:32)
--- NOTE | 2021-03-29 13:51 | NUR ---
DISCHARGE INSTRUCTIONS REVIEWED WITH THE PATIENT. TELE BOX AND POWER GLIDE REMOVED. ALL QUESTIONS ANSWERED. PATIENT IS IN HIS ROOM GETTING READY FOR DISCHARGING HOME AT THIS TIME.
--- NOTE | 2021-03-29 14:22 | NUR ---
PATIENT DISCHARGED HOME AT 1420. CELL ROOM SUPERVISOR ESCORTED PATIENT OUT IN WHEELCHAIR.
== END 2021-03-29 14:22 | disposition home health service (06) | DRG 291 ==
LOC: ER 23:36 → ICUW 03-21 04:11 → PCU 03-21 04:11 → ICUW 03-21 21:24 → PCU 03-24 22:06 → MEDS 03-27 18:56
PROVIDERS: Family Medicine; Hospitalist; Internal Medicine; Internal Medicine Cardiovascular Disease; Internal Medicine Nephrology; Pharmacist; Student in an Organized Health Care Education/Training Program; ADMIT Internal Medicine
PROC: 5A09357 Assistance with Respiratory Ventilation, Less than 24 Consecutive Hours, Continuous Positive Airway Pressure (ICD-10-PCS; principal; 2021-03-21)
DX: I13.0 Hypertensive heart and chronic kidney disease with heart failure and stage 1 through stage 4 chronic kidney disease, or unspecified chronic kidney disease (principal); I50.33 Acute on chronic diastolic (congestive) heart failure; R57.1 Hypovolemic shock; K72.00 Acute and subacute hepatic failure without coma; J44.1 Chronic obstructive pulmonary disease with (acute) exacerbation; I48.20 Chronic atrial fibrillation, unspecified; E87.1 Hypo-osmolality and hyponatremia; N17.9 Acute kidney failure, unspecified; G93.40 Encephalopathy, unspecified; E88.09 Other disorders of plasma-protein metabolism, not elsewhere classified; I42.9 Cardiomyopathy, unspecified; I27.20 Pulmonary hypertension, unspecified; D63.1 Anemia in chronic kidney disease; G47.33 Obstructive sleep apnea (adult) (pediatric); I87.2 Venous insufficiency (chronic) (peripheral); K59.00 Constipation, unspecified; F99 Mental disorder, not otherwise specified; N18.9 Chronic kidney disease, unspecified; F31.9 Bipolar disorder, unspecified; F20.9 Schizophrenia, unspecified; Z79.899 Other long term (current) drug therapy; Z79.01 Long term (current) use of anticoagulants; Z87.891 Personal history of nicotine dependence; Z90.49 Acquired absence of other specified parts of digestive tract
CPT/HCPCS: 36415; 36600; 51702; 70450; 71045; 76705; 76770; 80048; 80053; 80069; 80076; 80162; 81001; 82140; 82248; 82728; 82803; 83605; 83735; 83880; 84100; 84443; 84484; 85014; 85018; 85025; 85049; 85379; 85610; 85730; 87040; 87086; 93005; 93010; 93312; 93325; 93922; 93971; 94640; 94644; 94660; 94761; 94762; 96365; 96375; 97110; 97116; 97162; 97166; 97535; 99285; A9270; C1751; C8929; J0282; J0690; J0696; J1160; J1644; J1650; J1940; J2250; J2310; J2543; J3010; J7030; J7040; J7050; J7060; J7120; Q9957